=== PATIENT | female | born 1990 | race Caucasian/White ===

== ENCOUNTER 2020-01-27 16:14 | Inpatient (IN) | payer OTHER, MEDICAID ==
[~2020-01-27] VITALS: Ht 157.5 cm; Wt 45.4 kg
--- NOTE | ~2020-01-27 | H ---
[address] [address] HISTORY AND PHYSICAL Name: ZEYAD RAYMOND Room: [address] IN M.R.#: [id number] Admission: 01/27/20 Attend Phys: Melecio Chadwick Discharge: 01/28/20 Date of : 89 Report #: [id number] THIS REPORT FOR: //name// cc: HALEY - No family physician/PCP FAM - No family physician/PCP ~ THIS REPORT FOR: //name// Patient was here less than 24 hour please refer to the final summation note. Patient left Against Medical Advice. By: [id number] Records Staff [facility] /CELIA
[~2020-01-27 16:14] MED LIST: ACYCLOVIR 400400 MG PO; NOHOMEMEDICATIONS; NORCO 5-325 TA1 EACH PO; PRENATAL
[2020-01-27 16:32] VITALS: BP 133/84
[2020-01-27 17:11] LABS: HEMATOCRIT 37.8 % (37.0-47.0); MCH 29.5 pg (26.0-34.0); MCHC 34.3 g/dL (28.0-37.0); MCV 86.1 fL (80.0-100.0); NUCLEATED RBCS 0 /100WBC; PLATELET COUNT* 331 thou/uL (150-400); RBC 4.39 mil/uL (4.20-5.00); WBC 19.5 thou/uL (4.0-11.0)
[2020-01-27 17:12] LABS: URINE BILIRUBIN 2+ (Negative); URINE BLOOD NEGATIVE (Negative); URINE CLARITY CLEAR; URINE COLOR YELLOW; URINE GLUCOSE-RANDOM NEGATIVE (Negative); URINE KETONES 3+ (Negative); URINE LEUKOCYTES-REFLEX NEGATIVE (Negative); URINE NITRITE-REFLEX NEGATIVE (Negative); URINE PROTEIN 2+ (Negative); URINE SPECIFIC GRAVITY >= 1.030 (1.005-1.030); URINE UROBILINOGEN 0.2 E.U./dl (0.2-1.0)
[2020-01-27 17:14] LABS: ICTOTEST (BILI CONFIRMATORY) Positive (Negative)
[2020-01-27 17:16] LABS: BACTERIA-REFLEX 1-9 Few /HPF (None Seen); CASTS None Seen /LPF (None Seen); CRYSTALS None Seen /LPF (None Seen); MUCUS 0-3 Light strn/LPF (None Seen); SQUAMOUS 0-3 Few /LPF (0-3); URINE RBC 0-2 Rare /HPF (0-2); URINE WBC-REFLEX 0-5 Rare /HPF (0-5)
[2020-01-27 17:22] LABS: CALCIUM 9.2 mg/dL (8.5-10.1); CREATININE 0.8 mg/dL (0.6-1.3)
[2020-01-27 17:26] LABS: ALBUMIN 4.8 g/dL (3.4-5.0); TOTAL BILIRUBIN 0.6 mg/dL (<0.1-1.0); TOTAL PROTEIN 8.5 g/dL (6.4-8.2)
[2020-01-27 17:46] LABS: ABSOLUTE LYMPHOCYTES 0.8 thou/uL (0.8-5.3); ABSOLUTE NEUTROPHILS 17.7 thou/uL (1.6-8.1); PLATELET ESTIMATE ADEQUATE
[2020-01-27 18:40] LABS: AMP/METHAMP Negative (Negative); BARBITURATES Negative (Negative); BENZODIAZEPINES Negative (Negative); COCAINE Negative (Negative); METHADONE Negative (Negative); OPIATES Negative (Negative); PCP Negative (Negative); THC POSITIVE (Negative)
[2020-01-27 23:30] VITALS: BP 104/57
--- NOTE | 2020-01-27 23:30 | NUR ---
THIS RN INTO ROOM TO TAKE PT OVER TO ICU. I INFORMED PT THAT WE HAD MEDICATIONS ON STANDBY INCASE HER HEART RATE AND BLOOD PRESSURE DROPS AGAIN. PT STATED THAT SHE DOES NOT WANT ANY MEDICATIONS FOR HER HEAR RATE OR BLOOD PRESSURE. PT ALSO STATED THAT HER WAS ON THE WAY UP TO BE WITH HER WHILE SHE IS IN THE ICU. I EXPLAINED TO PT THAT IT IS OUTSIDE OF VISITING HOURS. PT GOT VERY ANGRY AND STATES THAT IF HER CANNOT STAY WITH HER ALL NIGHT, THEN SHE IS NOT GOING TO STAY HERE. PT REQUESTING FOOD AT THIS TIME. I EXPLAINED TO PT THAT SHE IS NPO AFTER MIDNIGHT. PT STATES THAT SHE DOES NOT CARE WHAT THE ORDERS ARE, SHE IS GOING TO EAT. SHE REFUSES TO BE NPO. I EXPLAINED TO PT THAT SHE MIGHT NEED TO HAVE SURGERY AND SHE HAS A CARDIOLOGY CONSULT IN THE MORNING. PT STATES THAT SHE REFUSES TO HAVE SURGERY BECAUSE SHE DOESNT BELIEVE THAT SHE IS GOING TO NEED SURGERY. PT STATES THAT IF SHE NEEDS SURGERY, THEN WE DID SOMETHING WRONG AND IT WOULD BE OUR FAULT IF SHE NEEDED SURGERY. I EXPLAINED TO PT TO WAIT UNTILL ALL OF HER IMAGING RESULTS CAME BACK AND THE DOCTORS WOULD EXPLAIN EVERYTHING TO HER AND GIVE HER HER OPTIONS. PT WAS TRANSPORTED OVER TO ICU AT THIS TIME.
--- NOTE | 2020-01-28 00:14 | NUR ---
PATIENT ARRIVED ON UNIT AT APPROX 2345. PATIENT REFUSING ALL MEDICATIONS EXCEPT FOR ANTIBIOTICS AND FLUIDS. STATED THAT SHE DID NOT WANT MEDICATION FOR HER HEART RATE EVEN IF IT DROPS, THEY DO NOT WANT ANY MEDICATIONS. REFUSING TO USE BEDSIDE COMMODE. REFUSING TO LEAVE, STATES THAT "THE RESEARCH I DID ON [place] SHOWS THAT 'ALL OF HER SYMPTOMS CAN BE CAUSED BY DEHYDRATION'" SPOKE TO DR. COELLO AND SHE IS AWARE OF SITUATION AND THAT PATIENT COULD SIGN [facility] PAPERWORK LONG SHE WAS AWARE OF THE CONSEQUENCES. PATIENT AND EDUCATED ON POSSIBLE COMPLICATIONS AND THE RISKS INVOLVED IN LEAVING [facility].
--- NOTE | 2020-01-28 00:44 | NUR ---
NURSING BENEFITS COORDINATOR MET WITH SPOUSE TO DISCUSS CONCERNS ABOUT THE PATIENTS CARE; HE EXPRESSED THAT HE WAS CONCERNED REGARDING HER BEING ABLE TO EAT; HE WAS OVERWHLEMED REGARDING THE HEALTH OF HIS 4 MONTH OLD ; STATING THAT SHE NEEDED TO NUTRITION TO BE ABLE TO SUPPORT HER MILK SUPPLY; NURSE DISCUSSED THAT WE COULD TALK TO THE DOCTOR AND DISCUSS ALLOWING HER FOOD FOR AN HOUR NUTRITION, AND THEN MAKE HER NPO; THE SPOUSE ATTEMPTED TO TALK TO THE PATIENT; SHE CONTINUES TO REFUSE TO NO BE ABLE TO EAT; BENEFITS COORDINATOR FURTHER DISCUSSED THAT AT THIS POINT THE PATIENT IS CRITICAL AND POTENTIALLY COULD IF LEFT THE HOSPITAL; THE SPOUSE STRESSED THAT HE WAS LIED TO ABOUT THE VISITING POLICY; THE NURSE REVIEWED THE POLICY AND STATED HE COULD VISIT AT 9:00 AM. HE THEN STATED SO I CAN COME AT 8:00 AM; SPOKE WITH THE PATIENTS NURSE LORI RN ABOUT FOOD; LORI STATED THAT THE PATIENT HAS FOOD IN FRONT OF HER FOR THE LAST HOUR AND HAS NOT TAKEN A BITE; STATED THE PATIENT REFUSES TO HAVE HER FOOD REMOVED AND WILL EAT WHEN SHE WANTS TO; THE SPOUSE ATTEMPTED TO CONVINCE HER TO STAY BUT THE PT STATED THAT SHE WAS LEAVING; PT IS LEAVING AMA.
--- NOTE | 2020-01-28 01:34 | NUR ---
PATIENT EDUCATED ON ALL RISKS FOR LEAVING THE HOSPITAL, VISITOR RULES AND REASONS FOR DR ORDERS. OFFERED ICE FOR BREAST MILK AND TO CONTACT THROUGH THE NIGHT TO MEASURING CLERK BREAST MILK IF IT WAS NEEDED. PATIENT STILL REFUSED TO ABIDE BY DR ORDERS. PATIENT STATED "I AM NOT HAVING SURGERY, REGARDLESS OF WHAT AYONE SAYS" PATIENT DECIDED TO LEAVE AMA UNABLE TO COMPLETE ADMISSION ASSESSMENT PATIENT REFUSED CARES.
--- NOTE | 2020-01-28 09:08 | EKG ---
[place] [address] ELECTROCARDIOGRAM REPORT Name: ZEYAD RAYMOND Room: [address] IN [facility]#: [id number] Admission: 01/27/20 Attend Phys: Melecio morris Sa Discharge: 01/28/20 Date of : 89 Date of Service: 01/27/20 1759 Report #: [id number] THIS REPORT FOR: //name// [facility] ED Test Date: 2020-01-27 Test Time: 17:59:31 Pat Name: ZEYAD RAYMOND Department: Room: [facility] Gender: F Material Attendant: KATE : 1990 Requested By: Meliton Baxter Order Number: [id number] MD: Woodrow Jackson Measurements Intervals Murray Rate: 39 P: 47 OK: 137 QRS: 77 QRSD: 87 T: 58 QT: 534 QTc: 431 Interpretive Statements Sinus bradycardia with junctional escape beat No previous ECG available for comparison Electronically Signed On 01-28-2020 9:08:00 CDT by Woodrow Jackson [email or web address] <ELECTRONICALLY SIGNED> By: Woodrow Jackson MD, [facility] 01/28/20 0908 1759 1759 Woodrow Jackson MD, [facility] /EPI
== END 2020-01-28 00:45 | disposition left against medical advice (07) | DRG 872 ==
LOC: M.ERS 16:14 → M.TBA-ER 21:13 → M.ICU 23:36
PROVIDERS: Physician Assistant; ADMIT Family Medicine; ATTEND Family Medicine
DX: A41.9 Sepsis, unspecified organism (principal); Z53.29 Procedure and treatment not carried out because of patient's decision for other reasons